=== PATIENT | male | born 1995 | race Caucasian/White ===

== ENCOUNTER 2022-07-23 05:12 | Emergency (ER) | payer SELFPAY ==
[~2022-07-23] VITALS: Ht 198.1 cm; Wt 108.9 kg
[2022-07-23] MEDS ORDERED: LEVE500T9 PO (05:23)
--- NOTE | 2022-07-23 05:34 | NUR ---
IN ED VIA AMBULANCE WITH REPORT OF PALPITATION AFTER SMOKING CRYSTAL METH. PER CM SR, 12 LEAD EKG OBTAINED AND LAB AT BEDSIDE TO OBTAIN SPECIMEN. NO DISTRESS NOTED. A, A AND O X 3.
[2022-07-23 05:44] LABS: HEMATOCRIT 42.5 % (36.7-47.1); MEAN CORPUSCULAR VOLUME 88.2 fL (73.0-96.2); PLATELET COUNT (AUTO) 309 K/uL (152-348)
[2022-07-23 05:52] LABS: CARBON DIOXIDE 29 mmol/L (21-32); CHLORIDE 102 mmol/L (98-107); CREATININE 1.2 mg/dL (0.6-1.3); GLUCOSE 110 mg/dL (74-106); POTASSIUM 3.9 mmol/L (3.5-5.1); UREA NITROGEN, BLOOD 18 mg/dL (7-18)
[2022-07-23 06:22] VITALS: BP 140/80
== END 2022-07-23 06:23 | disposition home or self-care (01) ==
LOC: ER 05:14
DX: F15.10 Other stimulant abuse, uncomplicated (principal); I45.10 Unspecified right bundle-branch block; G40.909 Epilepsy, unspecified, not intractable, without status epilepticus; J45.909 Unspecified asthma, uncomplicated
CPT/HCPCS: 36415; 84484; 85025; 93005; A4663

== ENCOUNTER 2025-08-24 15:35 | Emergency (ER) | payer OTHER ==
[~2025-08-24] VITALS: Ht 198.1 cm; Wt 113.4 kg
[~2025-08-24 15:35] MED LIST: LEVE500T9 PO
[2025-08-24 16:02] LABS: PLATELET COUNT (AUTO) 271 K/uL (152-348); RED BLOOD CELL COUNT(AUTO) 4.79 MIL/uL (4.06-5.63); RED CELL DISTRIBUTION WIDTH 14.4 % (12.1-16.2); WHITE BLOOD COUNT (AUTO) 5.6 K/uL (3.6-10.2)
[2025-08-24] MEDS ORDERED: MIDAZOLAM HCL 2 MG/2 ML VIAL ONE (16:05)
[2025-08-24 16:09] LABS: *BILIRUBIN,URIN NEGATIVE (NEGATIVE); *BLOOD, URINE NEGATIVE (NEGATIVE); *CLARITY,URINE CLEAR (CLEAR); *COLOR,URINE YELLOW (YELLOW); *KETONES,URINE NEGATIVE (NEGATIVE); *PROTEIN,URINE TRACE (NEGATIVE); *UROBILINOGEN,URINE 0.2 E.U./dl (NORMAL); CREATININE 0.9 mg/dL (0.6-1.3); LEUKOCYTE ESTERASE ,URINE NEGATIVE (NEGATIVE); NITRITE, URINE NEGATIVE (NEGATIVE); SODIUM SERUM 139 mmol/L (136-145); UGLUCOSE NEGATIVE (NEGATIVE); UREA NITROGEN, BLOOD 19 mg/dL (7-18)
[2025-08-24 16:10] LABS: ETHANOL < 3 MG/DL (0-10)
[2025-08-24] MEDS: MIDAZOLAM HCL 2 MG/2 ML VIAL IV ONE (16:13)
[2025-08-24] MEDS: IV NORMAL SALINE 1000 ML BAG IV ONE ×2 (16:13→17:09)
[2025-08-24 16:15] LABS: ASPARTATE AMINOTRANSFERASE 17 U/L (15-37); TOTAL PROTEIN, SERUM 7.2 g/dL (6.4-8.2)
[2025-08-24 16:19] LABS: *AMPHETAMINE, URINE NEGATIVE (NEGATIVE); *BARBITURATE, URINE NEGATIVE (NEGATIVE); *BENZODIAZEPINE, URINE NEGATIVE (NEGATIVE); *CANNABINOID, URINE POSITIVE (NEGATIVE); *COCCAINE, URINE NEGATIVE (NEGATIVE); *OPIATE, URINE NEGATIVE (NEGATIVE); *PHENCYCLIDINE SCREEN,URINE NEGATIVE (NEGATIVE); FENTANYL, URINE NEGATIVE (NEGATIVE); SQUAMOUS EPITHELIAL CELL,UR NONE SEEN /HPF (NONE SEEN)
[2025-08-24 16:21] LABS: LACTIC ACID 2.5 mmol/L (0.4-2.0)
[2025-08-24] MEDS ORDERED: LORAZEPAM 2 MG/1 ML VIAL ONE ×2 (16:24→16:28)
[2025-08-24] MEDS ORDERED: diphenhydrAMINE 50 MG/1 ML VIAL ONE (16:42)
[2025-08-24] MEDS: LORAZEPAM 2 MG/1 ML VIAL IV ONE (17:08)
[2025-08-24] MEDS: diphenhydrAMINE 50 MG/1 ML VIAL IV ONE (17:08)
[2025-08-24] MEDS ORDERED: HALOPERIDOL LACTATE 5 MG/1 ML VIAL ONE (17:27)
[2025-08-24] MEDS: HALOPERIDOL LACTATE 5 MG/1 ML VIAL IV ONE (17:33)
[2025-08-24] MEDS ORDERED: ONDANSETRON 4 MG/2 ML VIAL IV PRN (18:45)
[2025-08-24] MEDS ORDERED: LORAZEPAM 2 MG/1 ML VIAL IV PRN (18:45)
[2025-08-24] MEDS ORDERED: MORPHINE SULFATE 2 MG/1 ML DISP.SYRIN IVP PRN (18:45)
[2025-08-24] MEDS ORDERED: ACETAMINOPHEN 325 MG TABLET PO PRN (18:45)
[2025-08-24 19:46] VITALS: O2SAT 96
[2025-08-25] VITALS: BP 106/60
[2025-08-25 01:15] VITALS: BP 106/60; TEMP 98; O2SAT 95
[2025-08-25] MEDS ORDERED: HEPARIN SODIUM,PORCINE 5,000 UNITS/ML VIAL SQ SCH (09:00)
== END 2025-08-25 01:16 | disposition home or self-care (01) ==
LOC: ER 15:51
DX: F12.959 Cannabis use, unspecified with psychotic disorder, unspecified (principal); F17.200 Nicotine dependence, unspecified, uncomplicated; F19.10 Other psychoactive substance abuse, uncomplicated; R51.9 Headache, unspecified; F44.5 Conversion disorder with seizures or convulsions; J45.909 Unspecified asthma, uncomplicated; Z79.899 Other long term (current) drug therapy
CPT/HCPCS: 36415; 70450; 83605; 84484; 85025; A4606; A4663; G0480; J1200; J1630; J1953; J2060; J2250; J7040